=== PATIENT | male | born 2000 | race Asian ===

== ENCOUNTER 2023-05-06 19:15 | Emergency (ER) | payer OTHER ==
[2023-05-06 19:33] VITALS: BP 134/94; O2SAT 100
[2023-05-06] MEDS ORDERED: IBUPROFEN 600 MG TABLET PO STA (19:42)
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
== END 2023-05-06 20:16 | disposition home or self-care (01) ==
LOC: ED 19:15 → EDBD 19:15 → ED 20:16
DX: R07.9 Chest pain, unspecified (principal); V49.40XA Driver injured in collision with unspecified motor vehicles in traffic accident, initial encounter
CPT/HCPCS: 71046; 99283; A9270